=== PATIENT | male | born 1975 | race African-American/Black ===

== ENCOUNTER 2016-12-04 00:59 | Emergency (ER) | payer OTHER ==
[~2016-12-04] VITALS: Ht 182.9 cm; Wt 64.7 kg
[2016-12-04] MEDS ORDERED: MOTRIN600 MG PO (02:47)
[2016-12-04 03:12] VITALS: BP 135/92
== END 2016-12-04 03:25 | disposition home or self-care (01) ==
LOC: EME 00:59
PROC: 2W3DX1Z Immobilization of Left Lower Arm using Splint (ICD-10-PCS; principal; 2016-12-04)
DX: S63.92XA Sprain of unspecified part of left wrist and hand, initial encounter (principal); X50.9XXA Other and unspecified overexertion or strenuous movements or postures, initial encounter; Y93.89 Activity, other specified; Y99.0 Civilian activity done for income or pay
CPT/HCPCS: 73130; 99281; 99283

== ENCOUNTER 2017-09-12 14:56 | Inpatient (IN) | payer OTHER ==
[~2017-09-12] VITALS: Ht 167.6 cm; Wt 68.1 kg
[~2017-09-12 14:56] MED LIST: MOTRIN600 MG PO
[2017-09-12 15:51] LABS: HEMATOCRIT 44.2 % (38.0-50.0); HEMOGLOBIN 15.5 G/DL (12.5-16.6); MCH 29.6 PG (29.0-34.0); MCHC 35.1 G/DL (30.0-36.0); MCV 84.5 FL (86-99); PLATELET COUNT 193 K/uL (156-360); RBC DIS.WIDTH-CV 12.2 % (11.8-14.6); RBC DIS.WIDTH-SD 37.7 % (39-53); RED BLOOD COUNT 5.23 M/uL (4.00-5.50); WHITE BLOOD COUNT 6.4 K/uL (4.1-10.2)
[2017-09-12 16:07] LABS: CHLORIDE 108 mEq/L (99-109); POTASSIUM 3.8 mEq/L (3.7-5.4); SODIUM 139 mEq/L (136-147)
[2017-09-12 16:08] LABS: GLUCOSE 102 mg/dL (70-99)
[2017-09-12 16:12] LABS: CREATININE 0.7 mg/dL (0.6-1.3); GFR ESTIMATE (CALCULATED) > 59 mL/min/ (58.99-99999)
[2017-09-12 16:13] LABS: UREA NITROGEN (BUN) 17 mg/dL (9-23)
[2017-09-12 16:36] LABS: ALBUMIN 4.4 g/dL (3.2-4.8)
[2017-09-12 16:39] LABS: APPEARANCE CLEAR ((CLEAR)); BILIRUBIN NEGATIVE; BLOOD NEGATIVE; COLOR YELLOW ((YELLOW)); GLUCOSE (STRIP) NEGATIVE; KETONES 20; LEUKOCYTES NEGATIVE; NITRITE NEGATIVE; PROTEIN (STRIP) 30; SPECIFIC GRAVITY 1.031 (1.000-1.030); UCUL ADDED? NO; UROBILINOGEN 0.2 MG/DL (0.2-1.0)
[2017-09-12 16:39] LABS: TOTAL PROTEIN 7.2 g/dL (6.4-8.3)
[2017-09-12 16:41] LABS: TOTAL BILIRUBIN 0.5 mg/dL (0.0-1.0)
[2017-09-12 16:42] LABS: ALKALINE PHOSPHATASE 106 IU/L (3-129)
[2017-09-12 16:44] LABS: AST (GOT) 24 IU/L (2-34)
[2017-09-12 16:45] LABS: ALT (GPT) 27 IU/L (3-49); DIRECT BILIRUBIN 0.2 mg/dL (0.0-0.3)
[2017-09-12 16:46] LABS: LIPASE 33 U/L (1.0-51.0)
[2017-09-12 22:06] VITALS: BP 133/87
[2017-09-13 03:51] VITALS: BP 132/80
[2017-09-13 08:00] VITALS: BP 133/87
[2017-09-13 12:21] VITALS: BP 152/92
[2017-09-13 15:53] VITALS: BP 123/89
[2017-09-13 20:00] VITALS: BP 136/86
[2017-09-14 00:30] VITALS: BP 140/88
[2017-09-14 03:34] VITALS: BP 131/84
[2017-09-14 08:07] VITALS: BP 123/80
[2017-09-14 12:03] VITALS: BP 141/93
[2017-09-14] MEDS ORDERED: ANTIVERT25 MG PO (12:08)
[2017-09-14] MEDS ORDERED: PREDNISONE10 MG PO (12:10)
== END 2017-09-14 13:12 | disposition home or self-care (01) | DRG 149 ==
LOC: EME 14:56 → EDOF 20:28 → 4SOUTH 20:28 → ENRESERV 20:31 → 4SOUTH 21:51
DX: H81.10 Benign paroxysmal vertigo, unspecified ear (principal); H81.20 Vestibular neuronitis, unspecified ear; E86.0 Dehydration
CPT/HCPCS: 70450; 70551; 80048; 80076; 81003; 83690; 85027; 93005; 99281; 99285; G0378; G8978 GP CJ; G8979 GP CH; G8980 CJ; G8987 GO CI; G8988 GO CH; G8989 GO CI; J0780; J2405; J7030; J7512